=== PATIENT | male | born 1940 | race African-American/Black ===

== ENCOUNTER 2019-10-22 13:57 | Emergency (ER) | payer OTHER ==
[2019-10-22] MEDS ORDERED: IBUPROFEN 200 MG TAB PO ONE (14:48)
[2019-10-22] MEDS ORDERED: IBUPROFEN 400 MG TAB ONE (14:48)
--- NOTE | 2019-10-22 14:51 | RAD REPORT ---
EXAM DESCRIPTION: Abril Roa (2 Views)10/22/2019 2:27 pm CLINICAL HISTORY: Cough COMPARISON: None FINDINGS: The lungs appear clear of acute infiltrate. The heart is normal size There appears to be a compression deformity involving a mid thoracic vertebral body which is not well seen on this exam. If clinically indicated further evaluation with x-ray thoracic spine could be obt ained
--- NOTE | 2019-10-22 15:41 | EDPHYS ---
Physician Documentation [facility] Name: Facundo Lee Age: 79 yrs Sex: Male : 1940 Arrival Date: 10/22/2019 Time: 14:07 Bed 24 Private MD: Bj Lozano ED Physician Dung Mays HPI: 10/22 14:37 This 79 yrs old Black Male presents to ER via Ambulatory with complaints of Cough. kb 14:37 The patient or guardian reports cough, that is intermittent, described as moderate. kb Onset: The symptoms/episode began/occurred 3 day(s) ago. Severity of symptoms: At their worst the symptoms were moderate, in the emergency department the symptoms have improved, mildly. Modifying factors: The symptoms are alleviated by nothing, the symptoms are aggravated by nothing. Associated signs and symptoms: The patient has no apparent associated signs or symptoms. The patient has not experienced similar symptoms in the past. The patient has not recently seen a physician. Pt reports cough that started 3 days ago. Denies fever. Reports cough was really bad yesterday so he took some medicine for it. Today the cough is better, but his whole body hurts. . Historical: - Allergies: 14:23 Lisinopril; tr5 - Home Meds: 14:23 Unable to obtain [Active]; tr5 - PMHx: 14:23 Hypertension; Diabetes - NIDDM; cancer prostate; tr5 - Immunization history:: Adult Immunizations up to date. - Social history:: Smoking status: Patient/guardian denies using tobacco, the patient reports quitting approximately 30 years ago. - Ebola Screening: : No symptoms or risks identified at this time. ROS: 14:36 ENT: Negative for injury, pain, and discharge, Neck: Negative for injury, pain, and kb swelling, Cardiovascular: Negative for chest pain, palpitations, and edema, Abdomen/GI: Negative for abdominal pain, nausea, vomiting, diarrhea, and constipation, Back: Negative for injury and pain, MS/Extremity: Negative for injury and deformity, Skin: Negative for injury, rash, and discoloration, Neuro: Negative for headache, weakness, numbness, tingling, and seizure. 14:36 Constitutional: Positive for body aches, Negative for chills, fatigue, fever, malaise, poor PO intake, weight loss. 14:36 Respiratory: Positive for cough, with no reported sputum, Negative for dyspnea on exertion, hemoptysis, orthopnea, pleurisy, shortness of breath, sputum production, wheezing. Exam: 14:37 Constitutional: This is a well developed, well nourished patient who is awake, alert, kb and in no acute distress. Head/Face: Normocephalic, atraumatic. ENT: Nares patent. No nasal discharge, no septal abnormalities noted. Tympanic membranes are normal and external auditory canals are clear. Oropharynx with no redness, swelling, or masses, exudates, or evidence of obstruction, uvula midline. Mucous membranes moist. Neck: Trachea midline, no thyromegaly or masses palpated, and no cervical lymphadenopathy. Supple, full range of motion without nuchal rigidity, or vertebral point tenderness. No Meningismus. Chest/axilla: Normal chest wall appearance and motion. Nontender with no deformity. No lesions are appreciated. Cardiovascular: Regular rate and rhythm with a normal S1 and S2. No gallops, murmurs, or rubs. Normal PMI, no JVD. No pulse deficits. Respiratory: Lungs have equal breath sounds bilaterally, clear to auscultation and percussion. No rales, rhonchi or wheezes noted. No increased work of breathing, no retractions or nasal flaring. Abdomen/GI: Soft, non-tender, with normal bowel sounds. No distension or tympany. No guarding or rebound. No evidence of tenderness throughout. Skin: Warm, dry with normal turgor. Normal color with no rashes, no lesions, and no evidence of cellulitis. MS/ Extremity: Pulses equal, no cyanosis. Neurovascular intact. Full, normal range of motion. Neuro: Awake and alert, GCS 15, oriented to person, place, time, and situation. Cranial nerves II-XII grossly intact. Motor strength 5/5 in all extremities. Sensory grossly intact. Cerebellar exam normal. Normal gait. Vital Signs: 14:12 BP 152 / 67; Pulse 94; Resp 19; Temp 101.5(O); Pulse Ox 98% on R/A; Weight 83.91 kg; tr5 Height 5 ft. 7 in. (170.18 cm); 15:39 BP 130 / 58; Pulse 94; Resp 18; Temp 99.7(O); tr5 15:40 BP 130 / 58; Pulse 91; Resp 20; Temp 99.7(O); Pulse Ox 98% ; lt1 14:12 Body Mass Index 28.97 (83.91 kg, 170.18 cm) tr5 MDM: 14:12 Patient medically screened. kb 14:37 Data reviewed: vital signs, nurses notes. kb 15:39 Data interpreted: Pulse oximetry: on room air is 98 %. Interpretation: normal. kb Counseling: I had a detailed discussion with the patient and/or guardian regarding: the historical points, exam findings, and any diagnostic results supporting the discharge/admit diagnosis, lab results, radiology results, the need for outpatient follow up, a family practitioner, to return to the emergency department if symptoms worsen or persist or if there are any questions or concerns that arise at home. 10/22 14:13 Order name: Flu; Complete Time: 15:20 kb 10/22 14:13 Order name: Chest Pa And Lat (2 Views) XRAY; Complete Time: 14:54 kb 10/22 15:33 Order name: Vital Signs; Complete Time: 15:39 kb Administered Medications: 14:50 Drug: Ibuprofen 600 mg Route: PO; tr5 15:39 Follow up: Response: Temperature is decreased tr5 Disposition: 19:03 Co-signature as Attending Physician, Dung Mays MD Signing chart for administrative ps1 purposes. Available for consultation in ED. . Disposition: 10/22/19 15:40 Discharged to Home. Impression: Acute upper respiratory infection, unspecified. - Condition is Stable. - Discharge Instructions: Upper Respiratory Infection, Adult, [id number]. - Prescriptions for Zithromax 500 mg Oral Tablet - take 1 tablet by ORAL route once daily for 5 days; 5 tablet. - Medication Reconciliation Form, Thank You Letter, Antibiotic Education, Prescription Opioid Use form. - Follow up: Emergency Department; When: As needed; Reason: Worsening of condition. Follow up: Private Physician; When: 2 - 3 days; Reason: Recheck today's complaints, Continuance of care, Re-evaluation by your physician. Signatures: Dispatcher [employer] EDMS Diana Lundberg, MAXINE ODELL-Greer Sharp RN RN aj1 Dung Mays MD MD ps1 Ruslan, Howard, RN RN tr5 Corrections: (The following items were deleted from the chart) 15:53 15:40 10/22/2019 15:40 Discharged to Home. Impression: Acute upper respiratory aj1 infection, unspecified. Condition is Stable. Forms are Medication Reconciliation Form, Thank You Letter, Antibiotic Education, Prescription Opioid Use. Follow up: Emergency Department; When: As needed; Reason: Worsening of condition. Follow up: Private Physician; When: 2 - 3 days; Reason: Recheck today's complaints, Continuance of care, Re-evaluation by your physician. kb
--- NOTE | 2019-10-22 15:41 | ER ---
Nurse's Notes [facility] Name: Facundo Lee Age: 79 yrs Sex: Male : 1940 Arrival Date: 10/22/2019 Time: 14:07 Bed 24 Private MD: Bj Lozano Diagnosis: Acute upper respiratory infection, unspecified Presentation: 10/22 14:20 Presenting complaint: Patient states: "I have been having this cough that i can't get tr5 rid of for a few days now." Pt states that he cannot recall which medications he is taking, but he is "taking a lot.". Transition of care: patient was not received from another setting of care. Onset of symptoms was October 22, 2019. Risk Assessment: Do you want to hurt yourself or someone else? Patient reports no desire to harm self or others. Initial Sepsis Screen: Does the patient meet any 2 criteria? No. Patient's initial sepsis screen is negative. Does the patient have a suspected source of infection? No. Patient's initial sepsis screen is negative. Care prior to arrival: None. 14:20 Method Of Arrival: Ambulatory tr5 14:20 Acuity: AUBRIE 3 tr5 Historical: - Allergies: 14:23 Lisinopril; tr5 - Home Meds: 14:23 Unable to obtain [Active]; tr5 - PMHx: 14:23 Hypertension; Diabetes - NIDDM; cancer prostate; tr5 - Immunization history:: Adult Immunizations up to date. - Social history:: Smoking status: Patient/guardian denies using tobacco, the patient reports quitting approximately 30 years ago. - Ebola Screening: : No symptoms or risks identified at this time. Screenin:23 Abuse screen: Denies threats or abuse. Nutritional screening: No deficits noted. tr5 Tuberculosis screening: No symptoms or risk factors identified. Fall Risk None identified. Assessment: 14:23 General: Appears uncomfortable, Behavior is calm, cooperative, appropriate for age. tr5 Pain: Denies pain. Neuro: Level of Consciousness is awake, alert, obeys commands, Oriented to person, place, time, [employer] are equal bilaterally Moves all extremities. Gait is steady. Cardiovascular: Heart tones present Capillary refill < 3 seconds Pulses are all present. Respiratory: Airway is patent Respiratory effort is even, unlabored, Respiratory pattern is regular, symmetrical. Respiratory: Reports cough that is productive. GI: No signs and/or symptoms were reported involving the gastrointestinal system. : No signs and/or symptoms were reported regarding the genitourinary system. EENT: No signs and/or symptoms were reported regarding the EENT system. Derm: No signs and/or symptoms reported regarding the dermatologic system. Musculoskeletal: No signs and/or symptoms reported regarding the musculoskeletal system. Vital Signs: 14:12 BP 152 / 67; Pulse 94; Resp 19; Temp 101.5(O); Pulse Ox 98% on R/A; Weight 83.91 kg; tr5 Height 5 ft. 7 in. (170.18 cm); 15:39 BP 130 / 58; Pulse 94; Resp 18; Temp 99.7(O); tr5 15:40 BP 130 / 58; Pulse 91; Resp 20; Temp 99.7(O); Pulse Ox 98% ; lt1 14:12 Body Mass Index 28.97 (83.91 kg, 170.18 cm) tr5 ED Course: 14:07 Patient arrived in ED. mr 14:07 Bj Lozano DO is Private Physician. mr 14:12 Diana Lundberg FNP-C is [facility]. kb 14:12 Dung Mays MD is Attending Physician. kb 14:19 Howard Mercer, KLEVER is Primary Nurse. tr5 14:21 Triage completed. tr5 14:23 Placed in gown. Bed in low position. Call light in reach. tr5 14:23 Arm band placed on Patient placed. tr5 14:30 Chest Pa And Lat (2 Views) XRAY In Process Unspecified. EDMS 14:50 Flu Sent. tr5 15:43 No provider procedures requiring assistance completed. Patient did not have IV access tr5 during this emergency room visit. Administered Medications: 14:50 Drug: Ibuprofen 600 mg Route: PO; tr5 15:39 Follow up: Response: Temperature is decreased tr5 Outcome: 15:40 Discharge ordered by . kb 15:43 Discharged to home ambulatory. tr5 15:43 Condition: stable 15:52 Discharge instructions given to patient. aj1 15:53 Patient left the ED. aj1 Signatures: Dispatcher [employer] EDMS Diana Lundberg FNP-C FNP-Ckb Johnson, Angela RN RN aj1 Jerome, Jayshree León, Nelly lt1 Howard Mercer RN RN tr5 Corrections: (The following items were deleted from the chart) 15: 14:23 Flu and/or RSV swab sent to lab. tr5 tr5
[2019-10-22 16:08] VITALS: O2SAT 98
[2019-10-22 16:09] VITALS: BP 130/58; TEMP 99.7
== END 2019-10-22 15:53 | disposition home or self-care (01) ==
LOC: ER 13:57
DX: J06.9 Acute upper respiratory infection, unspecified (principal); Z88.8 Allergy status to other drugs, medicaments and biological substances
CPT/HCPCS: 71046; 87804; 99284